=== PATIENT | female | born 1985 | race Two or more races ===

== ENCOUNTER 2017-02-07 17:23 | Inpatient (IN) | payer MEDICARE, MEDICAID ==
[~2017-02-07 17:23] MED LIST: AMITRIPTYLINE H25 MG PO; AUGMENTIN875 MG PO; BACTRIM DS TABL1 TAB; BACTRIM1 TAB PO; BENADRYL25 M3; CAL-600 W/VIT D1 TAB PO; CARAFATE1 G PO; CHOLESTYRAMIN4 G/PKT PO; CHOLESTYRAMINE378 GM; CHOLESTYRAMINE378 GM PO; CLARITIN10 M6 PO; CLINDAMYCIN HC300 MG PO; DEPO-PROVE150 MG/11 IM; DEPO-PROVER150 MG/ML IM; ELAVIL25 MG PO; FISH OIL 1,0001 EA10 PO; GLIPIZIDE XL10 MG PO; GLIPIZIDE XL5 MG PO; GLIPIZIDE10 MG PO; GLIPIZIDE5 MG PO; GLUCOPHAGE500 MG PO; GLUCOPHAGE500 MG/TAB PO; GLUCOTROL10 MG PO; HYDROCHLOROTHIA25 MG PO; IRON PO; IRON1 TA1 PO; IRON325 ( 65 PO; KEFLEX500 MG; KEPPRA250 M1 PO; KEPPRA500 M1 PO; KEPPRA500 M2 PO; KEPPRA750 MG PO; KLOR-CON M2020 ME1 PO; LANTUS100 U/ML SC; LASIX20 MG PO; LEVAQUIN250 M1 PO; LEXAPRO20 M2 PO; LORTAB 5/5001 EA PO; MACROBID100 MG/CA1 PO; MACRODANTIN100 MG PO; MACRODANTIN50 MG PO; MELATONIN1 M2 PO; MUCINEX600 M1 PO; MULTIVITAMIN1 CAP; MYCOSTATIN15 GM TP; NEXIUM40 MG; NEXIUM40 MG PO; NITROFURANTOIN; NITROFURANTOIN100 M; NITROFURANTOIN50 M1 PO; NORCO 5-325 TA1 EACH PO; NORCO 5/325 TAB1 TAB PO; NOVOLOG FL100 UNIT/2; ONGLYZA5 MG PO; PREVALITE PAC4 G/PKT PO; PREVALITE POWD231 GM PO; PROTONIX40 M2 PO; QUESTRAN LIGH4 G/PKT; REGLAN5 M1 PO; SANTYL30 GM TP; SENOKOT-S TABL1 EACH PO; SMZ-TMP DS 800-1 TAB PO; SODIUM BICARBO650 M1 PO; SODIUM BICARBO650 MG PO; SULFAMYLON453.6 GM TP; TRILEPTAL300 M2 PO; ULTIMATE FLORA; VITAMIN D250000 UNI1 PO; VITAMIN D50000 UNI1 PO; WELCHOL625 M1 PO; ZANTAC150 M1 PO; [UNRECOGNIZED DRUG - OTHER] PO; [UNRECOGNIZED DRUG - REMARK]
[2017-02-07] MEDS ORDERED: KEPPRA1000 M1 PO (17:34)
[2017-02-07] MEDS ORDERED: LEXAPRO20 M2 PO (17:34)
[2017-02-07] MEDS ORDERED: LEVEMIR FL100 UNIT/2 SC (17:34)
[2017-02-07] MEDS ORDERED: KEPPRA250 M1 PO (17:35)
[2017-02-07] MEDS ORDERED: CLARITIN10 M6 PO (17:35)
[2017-02-07] MEDS ORDERED: MELATONIN1 M2 PO (17:36)
[2017-02-07] MEDS ORDERED: REGLAN10 M2 PO (17:37)
[2017-02-07] MEDS ORDERED: NYSTOP60 GM EXT (17:38)
[2017-02-07] MEDS ORDERED: NOVOLOG FL100 UNIT/2 SC (17:38)
[2017-02-07] MEDS ORDERED: OXCARBAZEPINE300 M1 PO (17:39)
[2017-02-07] MEDS ORDERED: POTASSIUM CHLO20 ME3 PO (17:39)
[2017-02-07] MEDS ORDERED: RANITIDINE HCL150 M2 PO (17:39)
[2017-02-07] MEDS ORDERED: OMEPRAZOLE20 M3 PO (17:39)
[2017-02-07] MEDS ORDERED: WELCHOL625 M1 PO (17:40)
[2017-02-07] MEDS ORDERED: BACTRIM DS TAB1 EAC2 PO (17:40)
[2017-02-07] MEDS ORDERED: VITAMIN D250000 UNI1 PO (17:40)
[2017-02-07] MEDS ORDERED: TYLENOL325 M2 PO (17:41)
[2017-02-07] MEDS ORDERED: CALMOSEPTINE OI71 G1 TP (17:42)
[2017-02-07] MEDS ORDERED: MEN PHOR ANTI I TP (17:42)
[2017-02-07] MEDS ORDERED: MILK OF MAGNESIA PO (17:43)
[2017-02-07 18:01] LABS: BASO % 0.2 % (0-2); EOS % 1.1 % (0-7); EOSINOPHIL ABSOLUTE COUNT 0.1 tho/cmm (0.0-0.7); HCT-HEMATOCRIT 22.4 % (34.0-49.0); HGB-HEMOGLOBIN 7.1 gm/dl (12.0-15.5); IMMATURE GRANULOCYTES ABSOLUTE 0.19 tho/cmm (0-0.03); IMMATURE GRANULOCYTES PERCENT 1.5 % (0-0.3); LYMPH % 17.9 % (20-45); LYMPH ABSOLUTE COUNT 2.3 tho/cmm (0.8-4.5); MCH (MEAN CORPUSCULAR HGB) 27.8 pg (28.0-32.0); MCHC MEAN CORPUSCULAR HGB CONC 31.7 % (32.0-36.0); MCV (MEAN CELL VOLUME) 87.8 fl (82.0-96.0); MONO % 4.2 % (0-12); MONOCYTE ABSOLUTE COUNT 0.6 tho/cmm (0.0-1.2); NEUTROPHIL ABSOLUTE COUNT 9.8 tho/cmm (1.6-8.0); NEUTROPHIL-AUTOMATED 9.8 tho/cmm (1.6-8.0); NEUTROPHILS % 75.1 % (40-80); PLATELET COUNT 267 tho/cmm (150-450); RED BLOOD COUNT 2.55 mil/cmm (4.00-5.20); RED CELL DISTRIBUTION WIDTH 14.8 % (12.4-16.4)
[2017-02-07 18:18] LABS: ALB/GLOB RATIO 0.5 (0.8-2.0); ALBUMIN 2.8 g/dl (3.5-5.0); ALKALINE PHOSPHATASE 741 U/L (33-138); ALT/SGPT 82 U/L (12-78); ANION GAP 18 mmol/L (0-20); BILIRUBIN,TOTAL 0.4 mg/dl (0-1.5); BLOOD UREA NITROGEN 36 mg/dl (6-24); C-REACTIVE PROTEIN 7.8 mg/dl (0-0.9); CALCIUM 8.2 mg/dl (8.5-10.5); CHLORIDE 119 mmol/l (96-110); CREATININE 1.78 mg/dl (0.50-1.10); GLUCOSE 124 mg/dL (70-110); SODIUM 141 mmol/L (135-145); eGFR VALUE FOR BLACK 44 mL/Min
[2017-02-07 18:19] LABS: AST/SGOT 61 U/L (10-40); POTASSIUM 4.6 mmol/L (3.7-5.1)
[2017-02-07 18:21] LABS: CARBON DIOXIDE-VENOUS 9 mmol/L (22-32)
[2017-02-07 18:46] LABS: ESR-ERYTHROCYTE SED RATE >140 mm/hr (0-20)
[2017-02-07 18:48] LABS: PROCALCITONIN 0.48 ng/ml (0.05-0.09)
[2017-02-07 19:03] LABS: KETONE-BETA (WHOLE BLOOD) <0.1 mmol/L (0.0-0.6)
[2017-02-07 19:16] LABS: PHOSPHOROUS 5.1 mg/dl (2.5-4.9)
[2017-02-08 02:05] LABS: URINE BILIRUBIN NEGATIVE (NEG); URINE BLOOD SMALL (NEG); URINE GLUCOSE (UA) NEGATIVE (NEG); URINE KETONE NEGATIVE (NEG); URINE LEUKOCYTE ESTERASE POSITIVE (NEG); URINE NITRITE NEGATIVE (NEG); URINE PROTEIN MODERATE (NEG)
[2017-02-08 02:12] LABS: URINE APPEARANCE HAZY; URINE BACTERIA 1+; URINE COLOR YELLOW; URINE EPITHELIAL CELLS 0-1 /[HPF] (0-10); URINE WBC 20-30 /[HPF] (0-5)
[2017-02-08 05:28] LABS: BASO % 0.2 % (0-2); EOSINOPHIL ABSOLUTE COUNT 0.1 tho/cmm (0.0-0.7); IMMATURE GRANULOCYTES ABSOLUTE 0.11 tho/cmm (0-0.03); IMMATURE GRANULOCYTES PERCENT 1.3 % (0-0.3); LYMPH % 20.4 % (20-45); LYMPH ABSOLUTE COUNT 1.8 tho/cmm (0.8-4.5); MCV (MEAN CELL VOLUME) 88.4 fl (82.0-96.0); MEAN PLATELET VOLUME 8.6 cmc (9.4-12.4); MONO % 4.7 % (0-12); MONOCYTE ABSOLUTE COUNT 0.4 tho/cmm (0.0-1.2); NEUTROPHIL ABSOLUTE COUNT 6.3 tho/cmm (1.6-8.0); NEUTROPHIL-AUTOMATED 6.3 tho/cmm (1.6-8.0); NEUTROPHILS % 72.4 % (40-80); PLATELET COUNT 213 tho/cmm (150-450); RED BLOOD COUNT 1.99 mil/cmm (4.00-5.20); RED CELL DISTRIBUTION WIDTH 14.9 % (12.4-16.4); WHITE BLOOD COUNT 8.7 tho/cmm (4.0-10.0)
[2017-02-08 05:43] LABS: MCH (MEAN CORPUSCULAR HGB) 28.1 pg (28.0-32.0); MCHC MEAN CORPUSCULAR HGB CONC 31.8 % (32.0-36.0)
[2017-02-08 05:46] LABS: ANION GAP 15 mmol/L (0-20); BLOOD UREA NITROGEN 31 mg/dl (6-24); C-REACTIVE PROTEIN 5.5 mg/dl (0-0.9); CALCIUM 7.1 mg/dl (8.5-10.5); CARBON DIOXIDE-VENOUS 10 mmol/L (22-32); CHLORIDE 124 mmol/l (96-110); GLUCOSE 163 mg/dL (70-110); HCT-HEMATOCRIT 17.6 % (34.0-49.0); HGB-HEMOGLOBIN 5.6 gm/dl (12.0-15.5); PHOSPHOROUS 4.5 mg/dl (2.5-4.9); SODIUM 146 mmol/L (135-145); eGFR VALUE FOR BLACK 43 mL/Min
[2017-02-08 05:58] LABS: POTASSIUM 3.3 mmol/L (3.7-5.1)
[2017-02-08 12:06] LABS: BASO % 0.2 % (0-2); EOSINOPHIL ABSOLUTE COUNT 0.1 tho/cmm (0.0-0.7); HGB-HEMOGLOBIN 6.6 gm/dl (12.0-15.5); IMMATURE GRANULOCYTES ABSOLUTE 0.21 tho/cmm (0-0.03); IMMATURE GRANULOCYTES PERCENT 1.7 % (0-0.3); LYMPH % 19.9 % (20-45); LYMPH ABSOLUTE COUNT 2.4 tho/cmm (0.8-4.5); MCH (MEAN CORPUSCULAR HGB) 28.2 pg (28.0-32.0); MCV (MEAN CELL VOLUME) 88.9 fl (82.0-96.0); MEAN PLATELET VOLUME 8.8 cmc (9.4-12.4); MONO % 3.9 % (0-12); MONOCYTE ABSOLUTE COUNT 0.5 tho/cmm (0.0-1.2); NEUTROPHIL ABSOLUTE COUNT 8.9 tho/cmm (1.6-8.0); NEUTROPHIL-AUTOMATED 8.9 tho/cmm (1.6-8.0); NEUTROPHILS % 73.3 % (40-80); PLATELET COUNT 277 tho/cmm (150-450); RED BLOOD COUNT 2.34 mil/cmm (4.00-5.20); WHITE BLOOD COUNT 12.2 tho/cmm (4.0-10.0)
[2017-02-08 12:07] LABS: HCT-HEMATOCRIT 20.8 % (34.0-49.0); MCHC MEAN CORPUSCULAR HGB CONC 31.7 % (32.0-36.0)
[2017-02-08 12:09] LABS: INR 1.1 INR (0.9-1.1); PROTHROMBIN TIME 13.3 SECONDS (9.0-13.6)
[2017-02-08 12:18] LABS: ALB/GLOB RATIO 0.5 (0.8-2.0); ALBUMIN 2.5 g/dl (3.5-5.0); ALT/SGPT 85 U/L (12-78); ANION GAP 16 mmol/L (0-20); AST/SGOT 61 U/L (10-40); BILIRUBIN,TOTAL 0.3 mg/dl (0-1.5); BLOOD UREA NITROGEN 28 mg/dl (6-24); CALCIUM 7.6 mg/dl (8.5-10.5); CARBON DIOXIDE-VENOUS 11 mmol/L (22-32); CHLORIDE 121 mmol/l (96-110); CREATININE 1.69 mg/dl (0.50-1.10); GLUCOSE 135 mg/dL (70-110); POTASSIUM 3.7 mmol/L (3.7-5.1); SODIUM 144 mmol/L (135-145); eGFR VALUE FOR BLACK 46 mL/Min
[2017-02-08 12:33] LABS: ALKALINE PHOSPHATASE 664 U/L (33-138)
--- NOTE | 2017-02-08 12:38 | NUR ---
JEAN-CLAUDE BROWNING NOTE-VISITED WITH PATIENT SHE WAS SITTING UP IN HER WHEELCHAIR. WE DISCUSSED THE WOUND VAC POSSIBLY BEING PUT BACK ON BUT WAITING FOR DR. GRANT TO COME BY AND ALSO THAT SURGERY HAS BEEN CONSULTED FOR HER HEEL. PATIENT ASKING IF SHE WILL NEED SURGERY AND I TOLD HER I DID NOT KNOW YET THAT THE SURGEON WILL HAVE TO DECIDE THAT. SHE HAD NO OTHER QUESTIONS OR CONCERNS AND DID STATE THAT HER PAIN IS STAYING CONTROLLED. CHART REVIEWED.
[2017-02-08 12:54] LABS: PROCALCITONIN 0.39 ng/ml (0.05-0.09)
[2017-02-08 15:42] LABS: ANION GAP 17 mmol/L (0-20); BLOOD UREA NITROGEN 27 mg/dl (6-24); CALCIUM 6.9 mg/dl (8.5-10.5); CHLORIDE 128 mmol/l (96-110); CREATININE 1.65 mg/dl (0.50-1.10); GLUCOSE 114 mg/dL (70-110); SODIUM 149 mmol/L (135-145); eGFR VALUE FOR BLACK 48 mL/Min
[2017-02-08 15:49] LABS: CARBON DIOXIDE-VENOUS 8 mmol/L (22-32)
[2017-02-08 18:27] LABS: ARTERIAL BLD GAS O2 SATURATION 98 % (95-98); ARTERIAL PO2 107 mmHg (70-100); BICARBONATE 7 mmol/L (21-28); BLOOD GAS BASE EXCESS -19 mM/L (-/+3)
[2017-02-08 18:30] LABS: ABG CO2 ARTERIAL 8 mmol/L (21-27); ARTERIAL BLOOD GAS PCO2 20 mmHg (32-45); PH 7.19 Units (7.35-7.45)
--- NOTE | 2017-02-08 20:40 | NUR ---
VIRTUAL CARE NOTE: GUARDIAN ELADIO NOTIFIED OF PT'S TRANSFER TO [facility] AND THAT CUSTOMER SUPPORT ANALYST WAS SEEING HER FOR SOME ACIDICNESS BUILDING UP IN HER SYSTEM.
[2017-02-09 00:59] LABS: ANION GAP 16 mmol/L (0-20); BLOOD UREA NITROGEN 25 mg/dl (6-24); CALCIUM 6.6 mg/dl (8.5-10.5); CARBON DIOXIDE-VENOUS 10 mmol/L (22-32); CHLORIDE 123 mmol/l (96-110); CREATININE 1.44 mg/dl (0.50-1.10); GLUCOSE 127 mg/dL (70-110); POTASSIUM 3.9 mmol/L (3.7-5.1); SODIUM 145 mmol/L (135-145); eGFR VALUE FOR BLACK 56 mL/Min
[2017-02-09 03:56] LABS: ABG CO2 ARTERIAL 12 mmol/L (21-27); ARTERIAL BLD GAS O2 SATURATION 99 % (95-98); ARTERIAL PO2 98 mmHg (70-100); BICARBONATE 11 mmol/L (21-28); BLOOD GAS BASE EXCESS -13 mM/L (-/+3)
[2017-02-09 03:57] LABS: ARTERIAL BLOOD GAS PCO2 20 mmHg (32-45); PH 7.36 Units (7.35-7.45)
[2017-02-09 03:57] LABS: BASO % 0.2 % (0-2); EOS % 1.3 % (0-7); EOSINOPHIL ABSOLUTE COUNT 0.1 tho/cmm (0.0-0.7); HGB-HEMOGLOBIN 7.1 gm/dl (12.0-15.5); IMMATURE GRANULOCYTES ABSOLUTE 0.12 tho/cmm (0-0.03); IMMATURE GRANULOCYTES PERCENT 1.4 % (0-0.3); LYMPH % 31.3 % (20-45); LYMPH ABSOLUTE COUNT 2.7 tho/cmm (0.8-4.5); MCH (MEAN CORPUSCULAR HGB) 27.8 pg (28.0-32.0); MCV (MEAN CELL VOLUME) 86.7 fl (82.0-96.0); MEAN PLATELET VOLUME 8.6 cmc (9.4-12.4); MONO % 3.8 % (0-12); MONOCYTE ABSOLUTE COUNT 0.3 tho/cmm (0.0-1.2); NEUTROPHIL ABSOLUTE COUNT 5.4 tho/cmm (1.6-8.0); NEUTROPHIL-AUTOMATED 5.4 tho/cmm (1.6-8.0); PLATELET COUNT 172 tho/cmm (150-450); RED BLOOD COUNT 2.55 mil/cmm (4.00-5.20); RED CELL DISTRIBUTION WIDTH 14.8 % (12.4-16.4); WHITE BLOOD COUNT 8.7 tho/cmm (4.0-10.0)
[2017-02-09 03:58] LABS: HCT-HEMATOCRIT 22.1 % (34.0-49.0); MCHC MEAN CORPUSCULAR HGB CONC 32.1 % (32.0-36.0)
[2017-02-09 04:02] LABS: ALBUMIN 1.9 g/dl (3.5-5.0); ALT/SGPT 55 U/L (12-78); ANION GAP 14 mmol/L (0-20); AST/SGOT 34 U/L (10-40); BLOOD UREA NITROGEN 23 mg/dl (6-24); C-REACTIVE PROTEIN 3.9 mg/dl (0-0.9); CALCIUM 6.7 mg/dl (8.5-10.5); CARBON DIOXIDE-VENOUS 13 mmol/L (22-32); CHLORIDE 122 mmol/l (96-110); CREATINE PHOSPHOKINASE (CPK) 21 U/L (21-215); CREATININE 1.37 mg/dl (0.50-1.10); GLUCOSE 118 mg/dL (70-110); MAGNESIUM 1.2 mg/dl (1.3-2.6); PHOSPHOROUS 4.2 mg/dl (2.5-4.9); POTASSIUM 3.6 mmol/L (3.7-5.1); SODIUM 145 mmol/L (135-145); eGFR VALUE FOR BLACK 60 mL/Min
[2017-02-09 04:39] LABS: ALB/GLOB RATIO 0.5 (0.8-2.0); ALKALINE PHOSPHATASE 437 U/L (33-138); BILIRUBIN,TOTAL 0.6 mg/dl (0-1.5)
[2017-02-09 09:17] LABS: ANION GAP 15 mmol/L (0-20); BLOOD UREA NITROGEN 21 mg/dl (6-24); CALCIUM 6.6 mg/dl (8.5-10.5); CARBON DIOXIDE-VENOUS 16 mmol/L (22-32); CHLORIDE 119 mmol/l (96-110); CREATININE 1.27 mg/dl (0.50-1.10); GLUCOSE 116 mg/dL (70-110); POTASSIUM 3.5 mmol/L (3.7-5.1); SODIUM 146 mmol/L (135-145); eGFR VALUE FOR BLACK 66 mL/Min
[2017-02-09 12:39] LABS: ANION GAP 14 mmol/L (0-20); BLOOD UREA NITROGEN 21 mg/dl (6-24); CARBON DIOXIDE-VENOUS 19 mmol/L (22-32); CHLORIDE 119 mmol/l (96-110); CREATININE 1.27 mg/dl (0.50-1.10); GLUCOSE 102 mg/dL (70-110); POTASSIUM 3.6 mmol/L (3.7-5.1); SODIUM 148 mmol/L (135-145); eGFR VALUE FOR BLACK 66 mL/Min
[2017-02-09 12:43] LABS: CALCIUM 6.5 mg/dl (8.5-10.5)
[2017-02-09 20:29] LABS: ANION GAP 14 mmol/L (0-20); BLOOD UREA NITROGEN 20 mg/dl (6-24); CARBON DIOXIDE-VENOUS 20 mmol/L (22-32); CHLORIDE 113 mmol/l (96-110); CREATININE 1.49 mg/dl (0.50-1.10); GLUCOSE 151 mg/dL (70-110); POTASSIUM 2.8 mmol/L (3.7-5.1); SODIUM 144 mmol/L (135-145); eGFR VALUE FOR BLACK 54 mL/Min
[2017-02-09 20:30] LABS: CALCIUM 6.4 mg/dl (8.5-10.5)
[2017-02-10 05:41] LABS: BASO % 0.1 % (0-2); EOS % 1.6 % (0-7); EOSINOPHIL ABSOLUTE COUNT 0.1 tho/cmm (0.0-0.7); HCT-HEMATOCRIT 24.3 % (34.0-49.0); IMMATURE GRANULOCYTES ABSOLUTE 0.07 tho/cmm (0-0.03); IMMATURE GRANULOCYTES PERCENT 0.8 % (0-0.3); LYMPH % 20.9 % (20-45); LYMPH ABSOLUTE COUNT 1.8 tho/cmm (0.8-4.5); MCH (MEAN CORPUSCULAR HGB) 28.2 pg (28.0-32.0); MCHC MEAN CORPUSCULAR HGB CONC 32.9 % (32.0-36.0); MCV (MEAN CELL VOLUME) 85.6 fl (82.0-96.0); MONO % 4.1 % (0-12); MONOCYTE ABSOLUTE COUNT 0.4 tho/cmm (0.0-1.2); NEUTROPHIL ABSOLUTE COUNT 6.3 tho/cmm (1.6-8.0); NEUTROPHIL-AUTOMATED 6.3 tho/cmm (1.6-8.0); NEUTROPHILS % 72.5 % (40-80); PLATELET COUNT 167 tho/cmm (150-450); RED BLOOD COUNT 2.84 mil/cmm (4.00-5.20); RED CELL DISTRIBUTION WIDTH 14.8 % (12.4-16.4); WHITE BLOOD COUNT 8.7 tho/cmm (4.0-10.0)
[2017-02-10 14:27] LABS: MAGNESIUM 1.5 mg/dl (1.3-2.6); PHOSPHOROUS 2.5 mg/dl (2.5-4.9)
[2017-02-10 19:31] LABS: POTASSIUM 3.9 mmol/L (3.7-5.1)
[2017-02-11 05:41] LABS: BASO % 0.2 % (0-2); EOS % 1.8 % (0-7); EOSINOPHIL ABSOLUTE COUNT 0.2 tho/cmm (0.0-0.7); HCT-HEMATOCRIT 26.2 % (34.0-49.0); HGB-HEMOGLOBIN 8.5 gm/dl (12.0-15.5); IMMATURE GRANULOCYTES ABSOLUTE 0.06 tho/cmm (0-0.03); IMMATURE GRANULOCYTES PERCENT 0.7 % (0-0.3); LYMPH % 22.1 % (20-45); MCH (MEAN CORPUSCULAR HGB) 28.4 pg (28.0-32.0); MCHC MEAN CORPUSCULAR HGB CONC 32.4 % (32.0-36.0); MCV (MEAN CELL VOLUME) 87.6 fl (82.0-96.0); MEAN PLATELET VOLUME 8.9 cmc (9.4-12.4); MONO % 4.6 % (0-12); MONOCYTE ABSOLUTE COUNT 0.4 tho/cmm (0.0-1.2); NEUTROPHIL ABSOLUTE COUNT 6.4 tho/cmm (1.6-8.0); NEUTROPHIL-AUTOMATED 6.4 tho/cmm (1.6-8.0); NEUTROPHILS % 70.6 % (40-80); PLATELET COUNT 171 tho/cmm (150-450); RED BLOOD COUNT 2.99 mil/cmm (4.00-5.20); WHITE BLOOD COUNT 9.1 tho/cmm (4.0-10.0)
[2017-02-11 05:53] LABS: ANION GAP 13 mmol/L (0-20); BLOOD UREA NITROGEN 14 mg/dl (6-24); C-REACTIVE PROTEIN 2.1 mg/dl (0-0.9); CARBON DIOXIDE-VENOUS 28 mmol/L (22-32); CHLORIDE 106 mmol/l (96-110); GLUCOSE 106 mg/dL (70-110); MAGNESIUM 1.5 mg/dl (1.3-2.6); PHOSPHOROUS 3.1 mg/dl (2.5-4.9); SODIUM 143 mmol/L (135-145); eGFR VALUE FOR BLACK 88 mL/Min
[2017-02-12] MEDS ORDERED: [UNRECOGNIZED DRUG - CODE] PO (08:34)
[2017-02-12] MEDS ORDERED: COLACE100 M1 PO (08:35)
[2017-02-12] MEDS ORDERED: COLACE100 M1 (08:35)
[2017-02-12] MEDS ORDERED: MUCINEX600 M1 PO (08:35)
[2017-02-12] MEDS ORDERED: MIRALAX17 G2 PO (08:36)
[2017-02-12] MEDS ORDERED: NOVOLOG100 UNIT/2 SC (08:38)
[2017-02-12] MEDS ORDERED: TUSSIN CF COUG118 ML PO (10:54)
[2017-02-13] MEDS ORDERED: SILVADENE20 G1 TOP (11:08)
[2017-02-13] MEDS ORDERED: FLONASE ALLERG9.9 ML (11:09)
[2017-02-13] MEDS ORDERED: NEILMED SINUS1 EAC4 (11:11)
--- NOTE | 2017-02-13 11:35 | NUR ---
VIRTUAL CARE NOTE: PT DRESSING SITTING ON HER WHEELCHAIR, FAMILY IN ROOM. DISCHARGE TEACHING INFORMATION GIVEN TO PT, QUESTIONS ANSWERED. PT DENIES FURTHER QUESTIONS. [facility] WILL FOLLOW WITH CARES AT HOME. INFORMED FLOOR NURSE DISCHARGE TEACHING DONE.
[2017-05-29] MEDS ORDERED: K-TAB ER20 ME1 PO (22:20)
[2017-06-06] MEDS ORDERED: OYSTER SHELL C500 M2 PO (11:40)
== END 2017-02-13 11:40 | disposition home health service (06) | DRG 853 ==
LOC: EDMED 17:23 → EMR2 19:34 → 5WD 22:15 → PCUB 02-08 20:15 → 5WD 02-10 22:00
PROVIDERS: Emergency Medicine; Hospitalist; Internal Medicine; Internal Medicine Infectious Disease; ADMIT Hospitalist
PROC: 0HBNXZZ Excision of Left Foot Skin, External Approach (ICD-10-PCS; principal; 2017-02-08)
PROC: 05H533Z Insertion of Infusion Device into Right Subclavian Vein, Percutaneous Approach (ICD-10-PCS; 2017-02-08)
PROC: 30243N1 Transfusion of Nonautologous Red Blood Cells into Central Vein, Percutaneous Approach (ICD-10-PCS; 2017-02-08)
DX: A41.9 Sepsis, unspecified organism (principal); L89.154 Pressure ulcer of sacral region, stage 4; N17.9 Acute kidney failure, unspecified; G82.20 Paraplegia, unspecified; E87.0 Hyperosmolality and hypernatremia; K59.2 Neurogenic bowel, not elsewhere classified; N31.9 Neuromuscular dysfunction of bladder, unspecified; E11.621 Type 2 diabetes mellitus with foot ulcer; Q05.9 Spina bifida, unspecified; K58.9 Irritable bowel syndrome, unspecified; Z79.4 Long term (current) use of insulin; Z89.411 Acquired absence of right great toe; Z91.040 Latex allergy status; Z86.14 Personal history of Methicillin resistant Staphylococcus aureus infection; K22.70 Barrett's esophagus without dysplasia; Z99.3 Dependence on wheelchair; Z88.1 Allergy status to other antibiotic agents; Z88.8 Allergy status to other drugs, medicaments and biological substances; D63.8 Anemia in other chronic diseases classified elsewhere; D72.829 Elevated white blood cell count, unspecified; E86.0 Dehydration; Z93.3 Colostomy status; Z98.2 Presence of cerebrospinal fluid drainage device; G40.909 Epilepsy, unspecified, not intractable, without status epilepticus; K21.9 Gastro-esophageal reflux disease without esophagitis; N18.9 Chronic kidney disease, unspecified; L89.620 Pressure ulcer of left heel, unstageable; R65.20 Severe sepsis without septic shock; J32.9 Chronic sinusitis, unspecified
CPT/HCPCS: C1751; G8978-GP-CH; G8979-GP-CH; G8980-GP-CH; G8987-GO-CL; G8988-GO-CJ; J0610; J0878; J1650; J1815; J2185; J2543; J3475; J3480; J7030; J7999; P9016

== ENCOUNTER 2017-02-24 18:14 | Emergency (ER) | payer MEDICARE, MEDICAID ==
[~2017-02-24 18:14] MED LIST changes: +BACTRIM DS TAB1 EAC2 PO; +CALMOSEPTINE OI71 G1 TP; +COLACE100 M1; +COLACE100 M1 PO; +FLONASE ALLERG9.9 ML; +KEPPRA1000 M1 PO; +LEVEMIR FL100 UNIT/2 SC; +MEN PHOR ANTI I TP; +MILK OF MAGNESIA PO; +MIRALAX17 G2 PO; +NEILMED SINUS1 EAC4; +NOVOLOG FL100 UNIT/2 SC; +NOVOLOG100 UNIT/2 SC; +NYSTOP60 GM EXT; +OMEPRAZOLE20 M3 PO; +OXCARBAZEPINE300 M1 PO; +POTASSIUM CHLO20 ME3 PO; +RANITIDINE HCL150 M2 PO; +REGLAN10 M2 PO; +SILVADENE20 G1 TOP; +TUSSIN CF COUG118 ML PO; +TYLENOL325 M2 PO; +[UNRECOGNIZED DRUG - CODE] PO
[2017-05-29] MEDS ORDERED: K-TAB ER20 ME1 PO (22:20)
[2017-06-06] MEDS ORDERED: OYSTER SHELL C500 M2 PO (11:40)
== END 2017-02-24 20:00 ==
LOC: EDMED 18:14
DX: Z46.89 Encounter for fitting and adjustment of other specified devices (principal)

== ENCOUNTER 2017-02-28 22:16 | Emergency (ER) | payer MEDICARE, MEDICAID ==
[2017-05-29] MEDS ORDERED: K-TAB ER20 ME1 PO (22:20)
[2017-06-06] MEDS ORDERED: OYSTER SHELL C500 M2 PO (11:40)
== END 2017-03-01 00:20 ==
LOC: EDMED 22:16
DX: Z48.01 Encounter for change or removal of surgical wound dressing (principal); E11.9 Type 2 diabetes mellitus without complications; K21.9 Gastro-esophageal reflux disease without esophagitis; G40.909 Epilepsy, unspecified, not intractable, without status epilepticus; Z87.442 Personal history of urinary calculi; Z90.49 Acquired absence of other specified parts of digestive tract; Z79.899 Other long term (current) drug therapy; Z79.4 Long term (current) use of insulin